=== PATIENT | female | born 1960 | race Caucasian/White ===

== ENCOUNTER → 2019-12-03 | Outpatient (REF) | payer MEDICARE, MEDICAID | LOC: M LABDRAW1 14:47 | PROVIDERS: ATTEND Nurse Practitioner Family | DX: R94.6 Abnormal results of thyroid function studies (principal) ==

== ENCOUNTER → 2020-02-19 | Outpatient (REF) | payer MEDICARE, MEDICAID | LOC: M LAB REF 16:48 | PROVIDERS: ATTEND Internal Medicine Nephrology | DX: R80.1 Persistent proteinuria, unspecified (principal) ==

== ENCOUNTER → 2021-03-13 | Outpatient (REF) | payer MEDICARE, MEDICAID ==
[2021-03-13 18:57] LABS: CREATININE, URINE 85.3 MG/DL; MAU/CREAT RATIO 1699.8 MCG/MG (0.0-30.0)
== END ==
LOC: M LAB REF 15:57
PROVIDERS: ATTEND Nurse Practitioner Family
DX: E11.65 Type 2 diabetes mellitus with hyperglycemia (principal)

== ENCOUNTER → 2021-07-26 | Outpatient (REF) | payer MEDICARE, MEDICAID | LOC: M LAB REF 18:09 | PROVIDERS: ATTEND Nurse Practitioner Family | DX: E83.42 Hypomagnesemia (principal) ==

== ENCOUNTER → 2022-02-28 | Outpatient (REF) | payer MEDICARE, MEDICAID ==
[2022-02-28 17:53] LABS: MAU/CREAT RATIO 2808.6 MCG/MG (0.0-30.0)
== END ==
LOC: M LAB REF 16:13
PROVIDERS: ATTEND Nurse Practitioner Family
DX: E11.65 Type 2 diabetes mellitus with hyperglycemia (principal)

== ENCOUNTER → 2023-04-03 | Outpatient (REF) | payer MEDICARE, OTHER, MEDICAID | LOC: M LAB REF 17:14 | PROVIDERS: ATTEND Nurse Practitioner Family | DX: N39.0 Urinary tract infection, site not specified (principal) ==

== ENCOUNTER → 2024-09-29 | Outpatient (REF) | payer OTHER, MEDICAID | LOC: M LAB REF 17:06 | PROVIDERS: ATTEND Nurse Practitioner Family | DX: N39.0 Urinary tract infection, site not specified (principal) ==

== ENCOUNTER → 2024-12-18 | Outpatient (REF) | payer OTHER, MEDICAID ==
[2024-12-18 17:36] LABS: APPEARANCE, URINE HAZY (CLEAR); BACTERIA, URINE AUTO 1+ (NEGATIVE); BILIRUBIN, URINE AUTO NEGATIVE (NEGATIVE); BLOOD, URINE BLOOD NEGATIVE (NEGATIVE); COLOR, URINE YELLOW (YELLOW); GLUCOSE, URINE (UA) AUTO NEGATIVE (NEGATIVE); KETONE, URINE AUTO NEGATIVE (NEGATIVE); LEUKOCYTE ESTERASE, URINE AUTO TRACE (NEGATIVE); MUCUS, URINE SMALL (NEGATIVE); NITRITE, URINE AUTO NEGATIVE (NEGATIVE); PROTEIN, URINE AUTO 3+ mg/dL (NEGATIVE); RBC, URINE AUTO 0 /HPF (0-3); SPECIFIC GRAVITY URINE AUTO 1.014 (1.002-1.035); SQUAMOUS EPITHELIAL CELL UR AU 5 /HPF (0-6); UROBILINOGEN, URINE AUTO 0.2 mg/dL (0.0-2.0); WBC, URINE AUTO 14 /HPF (0-3)
== END ==
LOC: M SMT 16:37
PROVIDERS: ATTEND Physician Assistant
DX: R31.9 Hematuria, unspecified (principal)

== ENCOUNTER 2025-05-11 06:26 | Inpatient (IN) | payer OTHER, MEDICAID ==
[2025-05-11] VITALS (7 sets, daily range): BP systolic 144–181; BP diastolic 72–85; TEMP 97.2–97.5; O2SAT 91–98
[~2025-05-11] VITALS: Ht 157.5 cm; Wt 74.7 kg
[~2025-05-11 06:26] MED LIST: AMLO1TAB24 PO; B-12100010 PO; BREO1INH INH; CLON-412 PO; CLOP75TA2 PO; ECOT81TA5 PO; JANU50TA25 PO; LOSA100T5 PO; MACR100C43 PO; MAGN250T7 PO; METO1TAB33 PO; OMEP40CA5 PO; OXYB5TAB14 PO; PYRI1TAB5 PO; VITA1CHW8 PO; VITA200016 PO; ceFAZolin SOD 2 GM IV ONCE IV ONE
[2025-05-11] MEDS ORDERED: ROCURONIUM BROMIDE 50MG/5ML VIAL As Ordered ONE (06:53)
[2025-05-11] MEDS ORDERED: LIDOCAINE 2% 100 MG/5 ML SDV (FOR ANES.) As Ordered ONE (06:53)
[2025-05-11] MEDS ORDERED: dexAMETHasone 4 MG/ML 1 ML VIAL As Ordered ONE (06:53)
[2025-05-11] MEDS ORDERED: ONDANSETRON 4MG 2ML VIAL As Ordered ONE (06:53)
[2025-05-11] MEDS ORDERED: SUGAMMADEX SODIUM 500 MG/5 ML VIAL As Ordered ONE (06:53)
[2025-05-11] MEDS ORDERED: dexmedeTOMIDine (4 MCG/ML) 200 MCG/50 ML BTL As Ordered ONE (06:57)
[2025-05-11] MEDS ORDERED: MIDAZOLAM INJ 2 MG/2 ML VIAL As Ordered ONE (06:59)
[2025-05-11] MEDS ORDERED: LIDOCAINE 1% SDV 30 ML VIAL As Ordered ONE (07:18)
[2025-05-11] MEDS ORDERED: DEXTROSE 50% 50 ML SYRINGE IV PRN ×2 (07:40→08:00)
[2025-05-11] MEDS ORDERED: GLUCOSE 4 GM CHEW PO PRN ×2 (07:40→08:00)
[2025-05-11] MEDS ORDERED: GLUCAGON INJ 1 MG VIAL SC PRN ×2 (07:40→08:00)
[2025-05-11] MEDS: LR 1,000 ML IV SCH ×2 (07:46→21:24)
[2025-05-11] MEDS: SCOPOLAMINE 1MG TRANSDERMAL PATCH TOP ONE (07:46)
[2025-05-11] MEDS: INSULIN LISPRO (NovoLOG) PER UNIT SC PRN (07:52)
[2025-05-11] MEDS: ceFAZolin SOD 2 GM IV ONCE IV ONE (08:38)
[2025-05-11] MEDS ORDERED: ACETAMINOPHEN 1000MG/100ML IV BAG As Ordered ONE (08:39)
[2025-05-11] MEDS ORDERED: HYDROmorphone HCL 2 MG/ML 1 ML VIAL As Ordered ONE (10:13)
[2025-05-11] MEDS ORDERED: HYDROMORPHONE HCL 0.5 MG/0.5 ML SYRINGE IV PRN (13:20)
[2025-05-11] MEDS ORDERED: METOPROLOL 5 MG/5 ML VIAL As Ordered ONE (13:51)
[2025-05-11] MEDS: LABETALOL 100 MG/20 ML VIAL IV PRN (14:38)
[2025-05-11 15:00] LABS: PLATELET COUNT, AUTOMATED 433 10^3/uL (150-450)
[2025-05-11] MEDS ORDERED: hydrALAZINE 20 MG/ML 1 ML VIAL As Ordered ONE (15:05)
[2025-05-11] MEDS: ONDANSETRON 4MG 2ML VIAL IV PRN (15:14)
[2025-05-11] MEDS: hydrALAZINE 20 MG/ML 1 ML VIAL IV PRN (15:19)
[2025-05-11 15:26] LABS: CALCIUM LEVEL 9.3 MG/DL (8.3-10.6); CARBON DIOXIDE LEVEL 27.0 MMOL/L (20-31); CHLORIDE LEVEL 103.0 MMOL/L (98-107); CREATININE FOR GFR 1.41 MG/DL (0.55-1.30); GLOMERULAR FILTRATION RATE 41.1 (>45); POTASSIUM SERUM 5.1 MMOL/L (3.5-5.1); SODIUM LEVEL 139.0 MMOL/L (136-145)
[2025-05-11] MEDS: ceFAZolin SOD 1 GM in DEXTROSE 5% (D5W) ADV/MINI-BAG 50 ML IV SCH (16:41)
[2025-05-11] MEDS: METOPROLOL SUCC. 50 MG *XL* TAB PO ONE (16:44)
[2025-05-11] MEDS: amLODIPine 10 MG TAB PO ONE (16:44)
[2025-05-11] MEDS ORDERED: **hydrALAZINE HCL** 25 MG TAB PO SCH (18:00)
[2025-05-11] MEDS: NS (Normal Saline) 0.9% 1,000 ML IV SCH (18:00)
[2025-05-11] MEDS ORDERED: HOME MED LIST COMPLETE! XX SCH (18:25)
[2025-05-11 19:54] LABS: ESTIMATED AVERAGE GLUCOSE 140.0 MG/DL (60-110)
[2025-05-11] MEDS: DOCUSATE SODIUM 100 MG CAPSULE PO SCH (21:22)
[2025-05-11] MEDS: METOPROLOL SUCC. 100 MG *XL* TAB PO SCH (21:23)
[2025-05-11] MEDS: HEPARIN SOD 5000 UNITS/ML 1 ML VIAL/SYRINGE SC SCH (21:24)
[2025-05-11] MEDS: INSULIN LISPRO (NovoLOG) PER UNIT SC SCH (21:24)
[2025-05-12] VITALS (8 sets, daily range): BP systolic 127–165; BP diastolic 58–85; TEMP 97.3–97.9; O2SAT 86–97
[2025-05-12] MEDS: ONDANSETRON 4MG 2ML VIAL IV PRN (00:27)
[2025-05-12] MEDS: PERCOCET 5MG/325MG TAB PO PRN ×2 (03:17→16:27)
[2025-05-12 07:56] LABS: PLATELET COUNT, AUTOMATED 224 10^3/uL (150-450)
[2025-05-12 08:07] LABS: CALCIUM LEVEL 8.9 MG/DL (8.3-10.6); CARBON DIOXIDE LEVEL 28.0 MMOL/L (20-31); CHLORIDE LEVEL 103.0 MMOL/L (98-107); CHOLESTEROL LEVEL 220.0 MG/DL (<200); CHOLESTEROL RISK RATIO 7.91 (<5); CREATININE FOR GFR 1.81 MG/DL (0.55-1.30); GLOMERULAR FILTRATION RATE 30.5 (>45); LDL CHOLESTEROL 118.4 MG/DL (<100); NON-HDL-C 192.2 MG/DL; POTASSIUM SERUM 4.9 MMOL/L (3.5-5.1); SODIUM LEVEL 139.0 MMOL/L (136-145); TRIGLYCERIDES LEVEL 369.0 MG/DL (<150)
[2025-05-12] MEDS: CYANOCOBALAMIN 500 MCG TAB PO SCH (08:55)
[2025-05-12] MEDS: INSULIN LISPRO (NovoLOG) PER UNIT SC SCH (08:56)
[2025-05-13 06:00] VITALS: BP 140/62; TEMP 97.4; O2SAT 94
[2025-05-13 07:51] LABS: PLATELET COUNT, AUTOMATED 235 10^3/uL (150-450)
[2025-05-13 08:25] LABS: CALCIUM LEVEL 8.9 MG/DL (8.3-10.6); CARBON DIOXIDE LEVEL 28.0 MMOL/L (20-31); CHLORIDE LEVEL 100.0 MMOL/L (98-107); CREATININE FOR GFR 2.08 MG/DL (0.55-1.30); GLOMERULAR FILTRATION RATE 25.8 (>45); POTASSIUM SERUM 4.6 MMOL/L (3.5-5.1); SODIUM LEVEL 137.0 MMOL/L (136-145)
[2025-05-13 08:30] VITALS: BP 173/76; TEMP 97.7; O2SAT 94
[2025-05-13] MEDS: NS (Normal Saline) 0.9% 1,000 ML IV SCH (08:47)
[2025-05-13] MEDS: ACETAMINOPHEN 325 MG TAB PO PRN (12:16)
[2025-05-13 14:00] VITALS: BP 170/77; TEMP 98.1; O2SAT 96
[2025-05-13 16:00] VITALS: BP 169/75; TEMP 97.6; O2SAT 96
[2025-05-13 20:36] VITALS: BP 175/75; TEMP 97.5; O2SAT 97
[2025-05-13] MEDS: ATORVASTATIN 20 MG TAB PO SCH (21:22)
[2025-05-13 23:33] VITALS: BP 151/75; TEMP 97.6; O2SAT 96
[2025-05-14] VITALS (7 sets, daily range): BP systolic 121–209; BP diastolic 65–96; TEMP 97.2–97.9; O2SAT 92–96
[2025-05-14] MEDS ORDERED: METOPROLOL SUCC. 100 MG *XL* TAB PO ONE (06:25)
[2025-05-14] MEDS: ACETAMINOPHEN 500 MG TAB PO ONE (07:00)
[2025-05-14] MEDS: MORPHINE 2 MG/ML 1 ML VIAL IV ONE (07:00)
[2025-05-14 07:26] LABS: PLATELET COUNT, AUTOMATED 198 10^3/uL (150-450)
[2025-05-14 07:56] LABS: CALCIUM LEVEL 8.1 MG/DL (8.3-10.6); CARBON DIOXIDE LEVEL 27.0 MMOL/L (20-31); CHLORIDE LEVEL 104.0 MMOL/L (98-107); CREATININE FOR GFR 1.76 MG/DL (0.55-1.30); GLOMERULAR FILTRATION RATE 31.5 (>45); POTASSIUM SERUM 4.4 MMOL/L (3.5-5.1); SODIUM LEVEL 140.0 MMOL/L (136-145)
[2025-05-14] MEDS: ISOSORBIDE DINITRATE 20 MG TAB PO SCH (08:23)
[2025-05-14] MEDS ORDERED: **hydrALAZINE HCL** 25 MG TAB PO SCH (09:00)
[2025-05-14] MEDS ORDERED: amLODIPine 10 MG TAB PO SCH (09:00)
[2025-05-14] MEDS ORDERED: PERCOCET PO (16:14)
[2025-05-14] MEDS ORDERED: COLA100C5 PO (16:14)
[2025-05-14] MEDS: amLODIPine 10 MG TAB PO SCH (20:16)
[2025-05-14] MEDS: METOPROLOL SUCC. 100 MG *XL* TAB PO SCH (20:16)
[2025-05-14] MEDS: DOXAZOSIN MESYLATE 1 MG TAB PO SCH (20:17)
[2025-05-15] VITALS (7 sets, daily range): BP systolic 130–166; BP diastolic 64–75; TEMP 97.5–97.9; O2SAT 90–97
[2025-05-15 07:10] LABS: PLATELET COUNT, AUTOMATED 180 10^3/uL (150-450)
[2025-05-15 07:33] LABS: CALCIUM LEVEL 8.8 MG/DL (8.3-10.6); CARBON DIOXIDE LEVEL 28.0 MMOL/L (20-31); CHLORIDE LEVEL 105.0 MMOL/L (98-107); CREATININE FOR GFR 1.82 MG/DL (0.55-1.30); GLOMERULAR FILTRATION RATE 30.3 (>45); POTASSIUM SERUM 5.0 MMOL/L (3.5-5.1); SODIUM LEVEL 140.0 MMOL/L (136-145)
[2025-05-15] MEDS ORDERED: ISOS20TA4 PO (12:29)
[2025-05-15] MEDS ORDERED: DOXA1TAB91 PO (12:29)
[2025-05-15] MEDS ORDERED: TALK1KIT MC (12:29)
[2025-05-15] MEDS ORDERED: AMLO1TAB25 PO (12:29)
[2025-05-15] MEDS ORDERED: FARX1TAB3 PO (12:32)
[2025-05-16 00:28] VITALS: O2SAT 92
[2025-05-16 05:12] VITALS: BP 160/82; TEMP 97.3; O2SAT 90
[2025-05-16 06:43] VITALS: BP 153/60
[2025-05-16] MEDS: DOXAZOSIN MESYLATE 1 MG TAB PO ONE (06:51)
[2025-05-16 06:57] LABS: PLATELET COUNT, AUTOMATED 180 10^3/uL (150-450)
[2025-05-16 07:27] LABS: CALCIUM LEVEL 8.5 MG/DL (8.3-10.6); CARBON DIOXIDE LEVEL 28.0 MMOL/L (20-31); CHLORIDE LEVEL 103.0 MMOL/L (98-107); CREATININE FOR GFR 1.8 MG/DL (0.55-1.30); GLOMERULAR FILTRATION RATE 30.7 (>45); POTASSIUM SERUM 4.9 MMOL/L (3.5-5.1); SODIUM LEVEL 140.0 MMOL/L (136-145)
[2025-05-16 07:57] VITALS: BP 140/73; TEMP 97.5; O2SAT 90
[2025-05-16 08:13] VITALS: BP 140/73
[2025-05-16] MEDS: DOXAZOSIN MESYLATE 1 MG TAB PO SCH (08:13)
[2025-05-16 13:29] VITALS: O2SAT 93
[2025-05-16] MEDS ORDERED: TALK1KIT MC (15:02)
[2025-05-16] MEDS ORDERED: DOXA2TAB80 PO (15:02)
[2025-05-16] MEDS ORDERED: AMLO-751 PO (15:02)
[2025-05-16] MEDS ORDERED: FARX1TAB5 PO (15:46)
== END 2025-05-16 17:38 | disposition home health service (06) | DRG 656 ==
LOC: INTOOBSV 06:26 → M OR 06:26 → M RR INP 14:50 → M MS5PR 17:30 → OBSVTOIN 19:46
PROVIDERS: ADMIT Urology; ATTEND General Practice
PROC: 0TT74ZZ Resection of Left Ureter, Percutaneous Endoscopic Approach (ICD-10-PCS; 2025-05-11)
PROC: 8E0W4CZ Robotic Assisted Procedure of Trunk Region, Percutaneous Endoscopic Approach (ICD-10-PCS; 2025-05-11)
PROC: 0TT14ZZ Resection of Left Kidney, Percutaneous Endoscopic Approach (ICD-10-PCS; principal; 2025-05-11 07:30)
DX: C68.0 Malignant neoplasm of urethra (principal); G92.8 Other toxic encephalopathy; C65.2 Malignant neoplasm of left renal pelvis; F17.200 Nicotine dependence, unspecified, uncomplicated; I12.9 Hypertensive chronic kidney disease with stage 1 through stage 4 chronic kidney disease, or unspecified chronic kidney disease; E11.22 Type 2 diabetes mellitus with diabetic chronic kidney disease; N18.32 Chronic kidney disease, stage 3b; E78.5 Hyperlipidemia, unspecified; E66.9 Obesity, unspecified; Z68.30 Body mass index [BMI] 30.0-30.9, adult; T40.2X5A Adverse effect of other opioids, initial encounter; I16.0 Hypertensive urgency; Z79.82 Long term (current) use of aspirin; Z79.899 Other long term (current) drug therapy; Z86.73 Personal history of transient ischemic attack (TIA), and cerebral infarction without residual deficits